=== PATIENT | male | born 1990 | race Caucasian/White ===

== ENCOUNTER 2023-10-09 12:59 | Emergency (ER) | payer OTHER ==
[~2023-10-09] VITALS: Ht 182.9 cm; Wt 82.0 kg
[2023-10-09 13:01] VITALS: BP 127/71; PULSE 73; TEMP 98.6; O2SAT 97
[2023-10-09 13:43] VITALS: RESP 12
== END 2023-10-09 14:21 | disposition home or self-care (01) ==
LOC: ER 12:59
DX: S01.111A Laceration without foreign body of right eyelid and periocular area, initial encounter (principal); X58.XXXA Exposure to other specified factors, initial encounter; Y93.89 Activity, other specified; Y92.89 Other specified places as the place of occurrence of the external cause; Y99.8 Other external cause status
CPT/HCPCS: 99281